=== PATIENT | male | born 1990 | race Caucasian/White ===

== ENCOUNTER 2021-04-03 04:43 | Emergency (ER) | payer SELFPAY ==
[2021-04-03 04:47] VITALS: BP 134/80; PULSE 97; RESP 19; TEMP 36.8; O2SAT 98; BMI 25.0
--- NOTE | 2021-04-03 04:57 | ED_ITS ---
HPI - Fever General: Chief Complaint: Fever Stated Complaint: Fever\Sinus Infection Time Seen by Provider: 04/03/21 04:45 Source: patient Mode of arrival: ambulatory Limitations: no limitations History of Present Illness: HPI Narrative: 31-year-old male states has been having sinus pain along with sinus congestion and believes he has a sinus infection since 2 days ago. States that a temperature of 101 yesterday's fevers improved today. Denies any cough or shortness of breath. Denies any difficulty breathing. Denies any worsening improving factors. Denies any vomiting or diarrhea. Associated symptoms: Reports nasal congestion and sinus pain; Deny abdominal pain, chest pain, diarrhea, dysuria, headache(s), nausea or vomiting Review of Systems Const: Reports: fever(s) Eyes: Denies: blurry vision or eye discomfort ENMT: Reports: throat pain, nasal discharge, nasal congestion and sinus pain Card: Denies: chest pain Resp: Denies: dyspnea GI: Denies: abdominal pain, nausea, vomiting or diarrhea : Denies: dysuria Musc: Denies: neck pain or back pain Skin/Breast: Denies: rash Neuro: Denies: headache(s) Psych: Denies: depression Norberto/Lymph: Denies: easy bruising All/Imm: Denies: urticaria Physical Exam Const: COMMON NORMALS: no acute distress, patient oriented x3 and healthy appearing HENMT: COMMON NORMALS: normocephalic and atraumatic HEAD & SCALP: normocephalic and atraumatic OTHER: Tenderness over frontal sinuses with nasal congestion Eye: COMMON NORMALS: Equal, round and reactive pupils present and EOMs intact bilaterally PUPIL: Yes Equal, round and reactive pupils present Neck/C-Spine: COMMON NORMALS: full ROM and supple Chest: COMMONS NORMALS: normal inspection of the chest and normal palpation of entire chest wall Resp: COMMON NORMALS: normal respiratory effort, No retractions, No use of accessory muscles and clear to auscultation bilaterally AUSCULTATION: clear to auscultation bilaterally Cardio: COMMON NORMALS: regular rate, regular rhythm and No murmurs present (Cardio) RATE: regular rate RHYTHM: regular rhythm GI: COMMON NORMALS: Normal to inspection, nondistended, normoactive bowel sounds present, Soft to palpation, non-tender and no masses PALPATION: Yes Soft to palpation Extremity: COMMON NORMALS: normal to inspection and full ROM Neuro: COMMON NORMALS: patient oriented x3, moves all extremities and no focal motor deficits Psych: COMMON NORMALS: mental status grossly normal, Normal thought process present and cooperative THOUGHT PROCESS: Normal thought process present Skin: COMMON NORMALS: no rashes or lesions noted and no wounds GENERAL SKIN EXAM: no rashes or lesions noted Course Vital Signs: Vital signs: Vital Signs Temperature 98.3 F 04/03/21 04:47 Pulse Rate 97 04/03/21 04:47 Respiratory Rate 19 H 04/03/21 04:47 Blood Pressure 134/80 04/03/21 04:47 Pulse Oximetry 98 04/03/21 04:47 MDM - Fever MDM Narrative: Medical decision making narrative: Patient presents here with likely sinusitis we will give him a steroid injection placed on Keflex he has no signs of sepsis. No signs of peritonsillar abscess he is stable for discharge. Discharge Plan Discharge Patient Disposition: Home Clinical Impression: Sinusitis Qualifiers: Sinusitis location: unspecified location Chronicity: acute Recurrence: non- recurrent Qualified Code(s): J01.90 - Acute sinusitis, unspecified Condition: Stable Prescriptions: New cephalexin 500 mg capsule 500 mg PO QID 7 Days Qty: 28 RF: 0 Discharge Orders: Discharge ED (Routine); Ordered 04/03/21 Ordered By: Codie Quintana Discharge Diet: Advance as tolerated Discharge Activity: Resume usual activity Patient Instructions: Sinusitis (ED) Coding Level of Care Code ED Patient Services Manager for Naya Thomas
[2021-04-03 05:05] VITALS: RESP 18
== END 2021-04-03 05:07 | disposition home or self-care (01) ==
PROVIDERS: Emergency Provider Emergency Medicine
DX: J01.90 Acute sinusitis, unspecified (principal)
CPT/HCPCS: 99281

== ENCOUNTER 2024-03-24 05:45 | Day surgery (SDC) | payer OTHER, SELFPAY ==
[2024-03-24] VITALS (18 sets, daily range): BP systolic 128–166; BP diastolic 81–116; PULSE 68–91; RESP 12–19; TEMP 36.3–36.7; O2SAT 92–100; BMI 24.2
[2024-03-24] MEDS: sodium chloride 0.9% 1,000 ML 30 ML IV ×2 (06:23→09:10)
--- NOTE | 2024-03-24 06:37 | ANES.PREANE2 ---
Pre-Anesthetic Assessment Height/Weight: Height 5 ft 6 in Weight 150 lb Temp Pulse Resp BP Pulse Ox O2 Del Method 97.3 F L 73 17 128/89 100 Room Air 03/24/24 06:09 03/24/24 06:09 03/24/24 06:09 03/24/24 06:09 03/24/24 06:09 03/24/24 06:09 Preop Diagnosis: Inguinal hernia Operation Date: 03/24/24 07:10 Proposed Procedures p Inguinal Hernia Repair Open Inguinal Hernia Repair w/ Mesh [id number], K40.90(Right) - Ermias Cruz MD Was Beta Obed taken within 24 hours: N/A Was Clonidine taken within 24 hours: N/A Last intake: Intake Last Liquid Date 03/23/24 Last Liquid Time 23:58 Last Solid Date 03/23/24 Last Solid Time 23:58 Social Tobacco and No alcohol Exam alert, oriented x 3, clear to auscultation bilaterally and regular rate & rhythm Airway Submandibular: within normal limits Cervical ROM: within normal limits Mallampati: Class I Dentition: full Anesthetic Plan ASA status: 2 Anesthesia: General Other: No prior issues with anesthesia NPO since midnight No past medical history besides smoking Patient denies any pulmonary cardiac issues METs greater than 4 Plan for GETA with postop peripheral nerve block Medications/Allergies Home Medications Medication Instructions Recorded Confirmed Last Taken Type No Known Home Medications 02/19/24 03/23/24 Unknown History Allergies Allergy/AdvReac Type Severity Reaction Status Date / Time No Known Allergies Allergy Verified 02/19/24 14:00 Current Medications Generic Name Dose Route Start Last Admin Trade Name Phill PRN Reason Stop Dose Admin Sodium Chloride 1,000 mls @ 30 mls/hr 03/24/24 06:00 03/24/24 06:23 Sodium Chloride 0.9% IV 03/25/24 05:59 30 mls/hr .Q24H LIAM Administration PFSH Anesthesia Social History Smoking and tobacco/nicotine status: current every day tobacco/nicotine user Data Anesthesia Cardiac Studies: No Data to Display
--- NOTE | 2024-03-24 06:58 | W.PM.OPSUD ---
Surgery/Procedure H&P Update DATE OF PROCEDURE: March 24, 2024 DATE H&P PERFORMED: 02/19/24 H&P UPDATE INFORMATION: I have reviewed H&P completed within last 30 days, I have examined patient prior to procedure and No changes to prior documentation PREOP DIAGNOSIS: Inguinal hernia PRIMARY INDICATION FOR PROCEDURE: Right inguinal hernia PLANNED PROCEDURE: Operation Date: 03/24/24 07:10 Proposed Procedures p Inguinal Hernia Repair Open Inguinal Hernia Repair w/ Mesh [id number], K40.90(Right) - Ermias Cruz MD
[2024-03-24] MEDS: ceFAZolin 2,000 mg SDV 2000 MG IVP (07:10)
[2024-03-24] MEDS: BUPivacaine 0.25% INJ 30 mL INJECTION (07:30)
[2024-03-24] MEDS: lidocaine-epi 1% PF 1:200,000 30 mL SDV INJECTION (07:30)
--- NOTE | 2024-03-24 08:24 | W.PM.BPONFUL ---
Pathology: None Implant(s): Polypropylene mesh patch Anesthesia: General Anesthesia Complications: None Brief history/preop diagnosis: 34-year-old male who presented with a right inguinal hernia. Consented to proceed with hernia repair with mesh. Full operative report: Patient brought to the OR and placed supine on the table. SCDs were placed and functioning. Preoperative ancef was administered. General anesthesia was induced. A patrick catheter was placed without any complications. The right groin was prepped and draped in the usual sterile fashion. Local infiltration at the surgical site was done using lidocaine/bupivacaine with epinephrine. A 7cm incision was carried out over the right inguinal canal. Tissue dissection was carried down to the external oblique fascia using electrocautery. The fascia was incised and the cord structures were identified. Cord structures were dissected of the hernia sac. I identified a direct inguinal hernia. The hernia sac was dissected and reduced into the abdomen. The posterior wall of the inguinal canal was reinforced using a polyprolpylene mesh patch. The mesh patch was sutured to the cojoint tendon and the inguinal ligament using interrupted sutures with 2-0 ethibond. The external oblique fascia was closed using 2-0 ethibond. Scarpas was closed using 3-0 vicryl. Skin was closed using 4-0 monocryl and surgical glue. Patrick was removed. The patient woke up from anesthesia and was transferred to PACU without any complications. Condition: Stable Dispostion: Home
[2024-03-24] MEDS: fentaNYL 50 mcg/mL INJ 2mL IVP ×2 (08:48→08:58)
[2024-03-24] MEDS: hyDRALAzine 20 mg/mL INJ 1 mL 10 MG IVP (09:13)
[2024-03-24] MEDS: oxyCODONE 5 mg IR Tab/Cap PO (10:39)
--- NOTE | 2024-03-24 10:52 | ANE.PACU2 ---
Inpatient post-anesthesia follow up: Airway intact: Yes Vital signs: Temperature 98.0 F Pulse Rate 81 Respiratory Rate 17 Blood Pressure 155/98 Pulse Oximetry 99 Oxygen Delivery Me thod Room Air Oxygen Flow Rate Fraction of Inspir ed Oxygen Hydration adequate: Yes Nausea and vomiting: No Pain level: 1 Mental status: Baseline
--- NOTE | 2024-03-24 13:34 | ANES.PROC ---
Anesthesia Procedures Procedure/Date: 03/24/24 Nerve Block ^: Nerve Block 1: Main Anesthesia: general anesthesia Time Out Performed: Yes Nerve block location: other (r tap block) Anesthesia monitors applied: pulse oximetry, EKG, BP cuff and oxygen Nerve block position: supine Anesthetic Used: other (ropivicaine 0.2%) Amount of anesthesia used (mL): 30 Ultrasound used to: recognize landmarks Nerve Stimulator Used?: No Interscalene/Femoral BLK: 4 stimuplex 21 g needle used for position and inplane approach Injection: neg aspiration of heme Patient Tolerated Procedure: well Complications: none
== END 2024-03-24 10:52 | disposition home or self-care (01) ==
PROVIDERS: PCP Student in an Organized Health Care Education/Training Program; Visit Provider Student in an Organized Health Care Education/Training Program
PROC: (CPT 49505; principal; 2024-03-24 07:00)
DX: K40.90 Unilateral inguinal hernia, without obstruction or gangrene, not specified as recurrent (principal); F17.200 Nicotine dependence, unspecified, uncomplicated
CPT/HCPCS: 49505; C1781; J0330; J0360; J0690; J1100; J1170; J2250; J2405; J2704; J2710; J3010; J3490; J7030

== ENCOUNTER 2025-03-23 05:00 | Outpatient (CLI) | payer SELFPAY | END 2025-03-23 05:01 | LOC: SOT 04-25 09:05 | PROVIDERS: Visit Provider Specialist | DX: Z46.89 Encounter for fitting and adjustment of other specified devices (principal); G56.32 Lesion of radial nerve, left upper limb | CPT/HCPCS: 97760; L3906 ==

== ENCOUNTER 2025-04-18 10:01 | Emergency (ER) | payer SELFPAY ==
[2025-04-18 10:06] VITALS: BP 185/107; PULSE 72; RESP 16; TEMP 36.7; O2SAT 100; BMI 24.7
--- NOTE | 2025-04-18 10:47 | ED_ITS ---
HPI - Extremity Problem General: Chief complaint: Extremity Problem,Nontraumatic Stated complaint: Lost feeling in the Lhand Time Seen by Provider: 04/18/25 10:14 History of Present Illness: Is a 35-year-old male with no medical problems who presents emergency room with left hand weakness. He works for [employer]. He does have a lot of use of his hands. He said this occurred suddenly while he was eating dinner. Says it localizes more to the thumb side of his hand. He feels like his thumb is extremely weak. Some mild sensory deficit. Good pulses. No injuries. No neck pain. Proximal strength is good. Mainly weak in his thumb and a little bit in his wrist. Related Data Previous Rx's ?Medication ?Instructions ?Recorded oxycodone 5 mg tablet 5 mg PO Q6H PRN pain 5 days #20 03/29/24 tabs dexamethasone 6 mg tablet 6 mg PO DAILY 5 days #5 tabs 04/18/25 Allergies Allergy/AdvReac Type Severity Reaction Status Date / Time No Known Allergies Allergy Verified 03/24/24 06:47 Review of Systems Narrative: Constitutional symptoms: Negative except as documented in HPI. Skin symptoms: Negative except as documented in HPI. Eye symptoms: Negative except as documented in HPI. ENMT symptoms: Negative except as documented in HPI. Respiratory symptoms: Negative except as documented in HPI. Cardiovascular symptoms: Negative except as documented in HPI. Gastrointestinal symptoms: Negative except as documented in HPI. Genitourinary symptoms: Negative except as documented in HPI. Musculoskeletal symptoms: Negative except as documented in HPI. Neurologic symptoms: Negative except as documented in HPI. Psychiatric symptoms: Negative except as documented in HPI. Endocrine symptoms: Negative except as documented in HPI. PFS ED PFSH: Social History Smoking and tobacco/nicotine status: current every day tobacco/nicotine user Physical Exam Narrative: EXAM NARRATIVE: General: Alert, no acute distress. Skin: warm and dry Head: Normocephalic Neck: Trachea midline Eye: Extraocular movements are intact. Ears, nose, mouth and throat: Oral mucosa moist Respiratory: Respirations are non-labored Musculoskeletal: Patient can move all his fingers but definite decrease in pelletizer strength. Particular in his thumb. Also some weakness in flexing and extending his wrist. No pain. Good radial pulse. Gastrointestinal: Abdomen does not appear distended Neurological: Alert and oriented, No focal neurological deficit observed. Psychiatric: Cooperative, appropriate mood & affect. 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 I reviewed the patient's medical record. Most recent visit was in 2023 for an inguinal hernia repair follow-up I reviewed the patient's current home meds: Patient takes no home meds. I reviewed the prescription monitoring program and he has had no narcotic prescriptions Alternate historians: None Differential diagnosis: including but not limited to and based on the above HPI, review of systems and physical exam: In this patient with numbness of his hand stroke would be in the differential but very minimal he is young and does not have any other deficits. Cervical radiculopathy would be considered but he has proximal good strength and no neck pain. So no CT of the head and no CT of the cervical spine. Would have concern for tumor in the chest that might extend into the nerve bundle there chest x-ray was ordered. Orders placed to evaluate differential diagnosis based on the above differential, HPI and physical exam Studies considered but not done: As above CT head and CT cervical spine. Chest x-ray: No acute process. No infiltrate. No pneumothorax. This was reviewed and interpreted by myself the emergency room physician. I also reviewed the radiology report. Lab Review: Laboratory results were reviewed and interpreted by myself the emergency room physician. No lab work indicated today. Consultation: I first talked with orthopedics because of concern for a carpal tunnel type scenario. She recommends that first the patient be evaluated by neurology and have nerve conduction studies. Consultation: I spoke with Dr. Larsen with neurology who will contact the patient for nerve conduction studies to be expedited this week given his employment status. Assessment of risk: - Level of risk: Mild - Was hospitalization considered? No Reexamination: Patient remained stable. No increased work of breathing. No altered mental status. No focal motor deficits. Assessment and plan: Left hand weakness Paresthesia ?Decadron in the emergency room. Although steroids might not be helpful the could be and likely will be detrimental in this healthy young patient for a quick burst. - Discharged home - Discussed plan with patient. Answered any questions. - Evaluation and treatment of this problem were appropriate in the emergency setting. Lab Data Radiology Impressions Chest X-Ray 04/18/25 10:54 IMPRESSION: 1. Negative chest. All radiology interpretation(s) finalized by discharge Discharge Plan Discharge Patient Disposition: Home Clinical Impression: Paresthesia, Hand weakness Condition: Stable Prescriptions: New dexamethasone 6 mg tablet 6 mg PO DAILY 5 Days Qty: 5 0RF No Action oxycodone 5 mg tablet 5 mg PO Q6H PRN (Reason: pain) 5 Days Qty: 20 0RF Discharge Orders: Discharge ED (Routine); Ordered 04/18/25 Ordered By: Dee Tao Referrals: Ermias Cruz MD [Primary Care Provider, General Surgery] Tomasa Larsen MD [Physician, Neurology] - 1-3 days Referral Note: Dr. Larsen's clinic should contact you for an appointment. If you do not hear from them call for an appointment Discharge Diet: Usual diet Discharge Activity: Increase activity as tolerated Patient Instructions: Paresthesia (ED), Opioid Safety, Pain Management, Patient Portal & Rut Instructions Activity Restrictions/Additional Instructions: Limit lifting with your left hand is much as possible. Thank you for choosing [facility] for your healthcare needs today. You have been screened and evaluated and felt safe for discharge. Health conditions do change or evolve sometimes and as such it is important that you follow up with your Primary Doctor to be re checked, 3-5 days is a general good time frame for follow up. You are always welcome to return to the ED for re assessment if your symptoms are worsening or you have new concerns Print Language: Tristanian Coding Level of Care Code ED Tourist Guide for Naya Thomas
--- NOTE | 2025-04-18 10:54 | XR_ITS ---
WS: [id number] Exam: XR chest 1V portable [id number] Date/Time of Exam: 04/18/2025 10:55 AM Reason For Exam: left hand numbness. r/o lung tumor No priors. Lungs are fully expanded and clear. Normal cardiomediastinal silhouette for technique. Unremarkable bony structures. XR/XR chest 1V portable [id number] IMPRESSION: 1. Negative chest.
[2025-04-18 11:35] VITALS: BP 146/98; PULSE 73; RESP 16; O2SAT 98
== END 2025-04-18 11:36 | disposition home or self-care (01) ==
PROVIDERS: Emergency Provider Emergency Medicine; PCP Student in an Organized Health Care Education/Training Program
DX: R20.2 Paresthesia of skin (principal); R53.1 Weakness; Z72.0 Tobacco use
CPT/HCPCS: 71045; 96372; 99284; J1100